=== PATIENT | female | born 1975 | race Two or more races ===

== ENCOUNTER 2016-03-30 17:59 | Emergency (ER) | payer OTHER ==
[2016-03-30 19:18] VITALS: BP 126/80
[2016-03-30] MEDS ORDERED: predniSONE TAB* 20 MG PO ONE (19:31)
[2016-03-30] MEDS ORDERED: Albuterol HFA INHALER* 8 gm MDI INH ONE (19:31)
--- NOTE | 2016-03-30 19:32 | UC ---
Respiratory Complaint HPI - HPI Summary HPI Summary: 40 yo asthmatic with URI symptoms for a while Now with severe sinus pressure and pain with dental tenderness now with fever and bronchospasm out of MDI - History of Current Complaint Chief Complaint: UCRespiratory Stated Complaint: SINUS ISSUE DENTAL PAIN Time Seen by Provider: 03/30/16 19:22 Hx Obtained From: Patient Hx Last Menstrual Period: 03/12/16 Onset/Duration: Sudden Onset, Lasting Weeks Timing: Constant Severity Initially: Mild Severity Currently: Severe Pain Intensity: 8 Pain Scale Used: 0-10 Numeric Character: Cough: Nonproductive Aggravating Factors: Nothing Alleviating Factors: Nothing Associated Signs And Symptoms: Positive: Fever, Chills, Wheezing, Nasal Congestion, Sinus Discomfort - Allergies/Home Medications Allergies/Adverse Reactions: Allergies Allergy/AdvReac Type Severity Reaction Status Date / Time Ciprofloxacin Allergy Swelling Verified 11/29/15 16:13 Iodine Allergy Anaphylatic Verified 11/29/15 16:13 Shock CONTRAST DYE Allergy ANAPHYLAXIS Uncoded 11/29/15 16:13 SEASONAL ALLERGIES Allergy ASTHMA Uncoded 11/29/15 16:13 PMH/Surg Hx/FS Hx/Imm Hx Previously Healthy: Yes Endocrine History Of: Reports: Thyroid Disease Denies: Diabetes Cardiovascular History Of: Reports: Cardiac Disorders Denies: Hypertension, Pacemaker/ICD Respiratory History Of: Reports: Asthma Denies: COPD GI/ History Of: Reports: Gall Bladder Disease - polyp, Renal Disease - kidney infections Denies: Gastroesophageal Reflux, Ulcer Neurological History Of: Denies: CVA, Dementia, Seizures Psychological History Of: Reports: Depression - ON MEDICATION Other History Of: Negative For: Anticoagulant Therapy - Surgical History Surgical History: Yes Surgery Procedure, Year, and Place: LUMP -BREAST SURGERY BILATERAL - Family History Known Family History: Positive: Cardiac Disease, Renal Disease, Respiratory Disease, Other - liver disease - Social History Alcohol Use: None Substance Use Type: None Smoking Status (MU): Current Every Day Smoker Type: Cigarettes Amount Used/How Often: 2 CIG/DAY - Immunization History Most Recent Tetanus Shot: 2011 Review of Systems Constitutional: Fever, Chills, Fatigue Skin: Negative Eyes: Negative ENT: Nasal Discharge Respiratory: Cough, Other - wheezing Cardiovascular: Negative Gastrointestinal: Negative Genitourinary: Negative Motor: Negative Neurovascular: Negative Musculoskeletal: Negative Neurological: Negative Psychological: Negative All Other Systems Reviewed And Are Negative: Yes Physical Exam Triage Information Reviewed: Yes Appearance: Well-Appearing, No Pain Distress, Well-Nourished Vital Signs: Initial Vital Signs Temp 98.7 F 03/30/16 19:14 Pulse 73 03/30/16 19:14 Resp 20 03/30/16 19:14 BP 126/80 03/30/16 19:14 Pulse Ox 100 03/30/16 19:14 Vital Signs Reviewed: Yes Eyes: Positive: Conjunctiva Clear ENT: Positive: Hearing grossly normal, Pharynx normal, Nasal congestion, Nasal drainage, TMs normal, Other: - markedly tender max sinuses. Negative: Tonsillar exudate, Trismus, Muffled/hoarse voice Dental: Negative: Gross Decay/Caries @ Neck: Positive: Supple, Nontender, No Lymphadenopathy Respiratory: Positive: No respiratory distress, No accessory muscle use, Wheezing - with forced expiration Cardiovascular: Positive: RRR, No Murmur. Negative: Tachycardia, Bradycardia Musculoskeletal: Positive: ROM Intact, No Edema Neurological: Positive: Alert Psychological Exam: Normal Skin Exam: Normal UC Diagnostic Evaluation - Laboratory O2 Sat by Pulse Oximetry: 100 - normal/not hypoxic Respiratory Course/Dx - Differential Dx/Diagnosis Provider Diagnoses: acute sinusitis. bronchospasm Discharge - Discharge Plan Condition: Stable Disposition: HOME Prescriptions: Amoxicillin/Clavulanate TAB* [Augmentin TAB 875*] 875 mg PO BID #20 tab HYDROcodone/ACETAMIN 5-325 MG* [[place] 5-325 TAB*] 1 tab PO Q4H PRN #15 tab MDD 5 PRN Reason: Pain Prednisone [Deltasone] 40 mg PO DAILY #10 tab Patient Education Materials: Sinusitis (ED), Bronchospasm (ED) Referrals: Girma Catalan MD [Primary Care Provider] - 4 Days (if not better)
== END 2016-03-30 19:44 | disposition home or self-care (01) ==
LOC: UCEAST 17:59
DX: J01.90 Acute sinusitis, unspecified (principal); J98.01 Acute bronchospasm; Z88.1 Allergy status to other antibiotic agents; Z91.041 Radiographic dye allergy status; F17.210 Nicotine dependence, cigarettes, uncomplicated
CPT/HCPCS: 99213; A9270-GY; G0463; J7512

== ENCOUNTER 2016-04-24 19:32 | Emergency (ER) | payer OTHER ==
[2016-04-24 20:13] VITALS: BP 122/60
--- NOTE | 2016-04-24 20:42 | UC ---
Complaint Female HPI - HPI Summary HPI Summary: Patient has frequent UTI, here today with dysuria and abd pain. - History Of Current Complaint Chief Complaint: UC Stated Complaint: FREQ URINATION W PAIN Time Seen by Provider: 04/24/16 20:13 Hx Obtained From: Patient Hx Last Menstrual Period: 03/02/16 ?: No Onset/Duration: Sudden Onset, Lasting Days Timing: Constant Severity Initially: Moderate Severity Currently: Severe Pain Intensity: 10 Pain Scale Used: 0-10 Numeric Character: Burning Aggravating Factor(s): Urination Alleviating Factor(s): Position Associated Signs And Symptoms: Positive: Back Pain - Risk Factors Ectopic Risk Factor: Negative - Allergies/Home Medications Allergies/Adverse Reactions: Allergies Allergy/AdvReac Type Severity Reaction Status Date / Time Ciprofloxacin Allergy Swelling Verified 04/24/16 20:04 Iodine Allergy Anaphylatic Verified 04/24/16 20:04 Shock CONTRAST DYE Allergy ANAPHYLAXIS Uncoded 04/24/16 20:04 SEASONAL ALLERGIES Allergy ASTHMA Uncoded 04/24/16 20:04 PMH/Surg Hx/FS Hx/Imm Hx Previously Healthy: Yes Endocrine History Of: Reports: Thyroid Disease Denies: Diabetes Cardiovascular History Of: Reports: Cardiac Disorders Denies: Hypertension, Pacemaker/ICD Respiratory History Of: Reports: Asthma Denies: COPD GI/ History Of: Reports: Gall Bladder Disease - polyp, Renal Disease - kidney infections Denies: Gastroesophageal Reflux, Ulcer Neurological History Of: Denies: CVA, Dementia, Seizures Psychological History Of: Reports: Depression - ON MEDICATION Other History Of: Negative For: Anticoagulant Therapy - Surgical History Surgical History: Yes Surgery Procedure, Year, and Place: LUMP -BREAST SURGERY BILATERAL - Family History Known Family History: Positive: Cardiac Disease, Renal Disease, Respiratory Disease, Other - liver disease - Social History Alcohol Use: None Substance Use Type: None Smoking Status (MU): Light Every Day Tobacco Smoker Type: Cigarettes Amount Used/How Often: 2 CIG/DAY - Immunization History Most Recent Influenza Vaccination: none Most Recent Tetanus Shot: 2011 Review of Systems Constitutional: Negative Skin: Negative Eyes: Negative ENT: Negative Respiratory: Negative Cardiovascular: Negative Gastrointestinal: Abdominal Pain Genitourinary: Dysuria, Hematuria, Frequency, Urgency Motor: Negative Neurovascular: Negative Musculoskeletal: Negative Neurological: Negative Psychological: Negative All Other Systems Reviewed And Are Negative: Yes Physical Exam Triage Information Reviewed: Yes Appearance: Well-Appearing, Well-Nourished, Pain Distress Vital Signs: Initial Vital Signs Temp 98.2 F 04/24/16 20:07 Pulse 81 04/24/16 20:07 Resp 16 04/24/16 20:07 BP 122/60 04/24/16 20:07 Pulse Ox 100 04/24/16 20:07 Vital Signs Reviewed: Yes Eye Exam: Normal ENT Exam: Normal ENT: Positive: Normal ENT inspection, Hearing grossly normal, Pharynx normal, TMs normal Dental Exam: Normal Neck exam: Normal Neck: Positive: Supple, Nontender, No Lymphadenopathy Respiratory Exam: Normal Respiratory: Positive: Chest non-tender, Lungs clear, Normal breath sounds Cardiovascular Exam: Normal Cardiovascular: Positive: RRR, No Murmur, Pulses Normal - right CVA tenderness, lower abdominal tenderness Bowel Sounds: Positive: Present Musculoskeletal Exam: Normal Musculoskeletal: Positive: Strength Intact, ROM Intact, No Edema Neurological Exam: Normal Neurological: Positive: Alert, Muscle Tone Normal Psychological Exam: Normal Skin Exam: Normal Complaint Female Dx - Course Course Of Treatment: hx obtained, she cannot explain it well, but according to past visits she has urinary issues, exam performed, UA positive for leuks and nitrates, blood and PRO. spe grav 1.035, treated with keflex and pyridium - Differential Dx/Diagnosis Differential Diagnosis/HQI/PQRI: Pelvic Inflammatory Disease, Sexually Transmitted Disease, Ureteral Stone, Urinary Tract Infection Provider Diagnoses: UTI. dehyrdation Discharge - Discharge Plan Condition: Stable Disposition: HOME Patient Education Materials: Urinary Tract Infection in Women (ED) Additional Instructions: take the medication as prescribed. Increase your water intake. follow up if pain increases or you develop a fever.
[2016-04-24] MEDS ORDERED: Phenazopyridine TAB* 100 MG PO ONE (20:55)
[2016-04-24] MEDS ORDERED: Cephalexin CAP* 500 MG PO ONE (20:55)
== END 2016-04-24 21:03 | disposition home or self-care (01) ==
LOC: UCEAST 19:32
DX: N39.0 Urinary tract infection, site not specified (principal); R31.9 Hematuria, unspecified; Z87.440 Personal history of urinary (tract) infections; E86.0 Dehydration; Z88.1 Allergy status to other antibiotic agents; Z91.041 Radiographic dye allergy status; F17.210 Nicotine dependence, cigarettes, uncomplicated
CPT/HCPCS: 81002; 87077; 87086; 87186; 99212; A9270-GY; G0463

== ENCOUNTER 2016-11-13 17:44 | Emergency (ER) | payer OTHER ==
[2016-11-13] MEDS ORDERED: predniSONE TAB* 20 MG PO ONE (22:57)
[2016-11-13] MEDS ORDERED: Ibuprofen TAB* 800 MG PO ONE (22:57)
[2016-11-13] MEDS ORDERED: HYDROcodone/ACETAMIN 5-325 MG* 1 TAB PO ONE (22:58)
[2016-11-13] MEDS ORDERED: Cyclobenzaprine TAB* 10 MG PO ONE (22:58)
--- NOTE | 2016-11-13 23:06 | ED ---
Back Pain - HPI Summary HPI Summary: 40 female presents to ED with complaints of acute on chronic back pain that has been worsening over the past day. Patient states the pain has been excruciating. She has not taken any medications as she has been all out. She is supposed to have follow up with neurosurgery and further evaluation however patient has been unable due to having sick children. Worked a festival all weekend and feels as though that worsened her back pain as she was standing for long periods of time. States she has sciatica and osteoporosis. Sees pain clinic but has been unable to get over there and does not like the injections. She understands she should be following up with neurosurgeon. Denies new numbness/tingling and weakness. Does admit to some chronic numbness/tingling of upper right thigh and weakness that is her baseline. Patient denies any new injuries or trauma. Admits to pain radiating up her spine. Is able to walk and bear weight however it does make the pain worse. Laying makes the pain better. No other complaints at this time. Denies saddle anesthesia, bladder/bowel incontinence and weakness bilaterally. No erythema, eccyhmosis, or edema. No other significant PMHx. Patient states she does get UTIs often and feels she may have one. She also admits to sciatica and pain being more on the right side. No significant urinary symptoms other than frequency and dark urine. - History of Current Complaint Chief Complaint: EDBackInjuryPain Stated Complaint: BACK PAIN Hx Obtained From: Patient Hx Last Menstrual Period: 03/02/16 Onset/Duration: Sudden Onset Onset/Duration: Started Days Ago - 1, Traumatic, Still Present, Worse Since Timing: Constant Back Pain Location: Is Discrete @ - lumbar right side Severity Initially: Moderate Severity Currently: Severe Pain Intensity: 10 Pain Scale Used: 0-10 Numeric Character: Sharp, Aching, Throbbing, Stiffness Aggravating Symptom(s): Movement Alleviating Symptom(s): Rest Associated Signs And Symptoms: Positive: Weakness, Tingling - chronic, nothing new. Negative: Bladder Incontinence, Bowel Incontinence, Pain with Weight Bearing - Risk Factors AAA Risk Factors: Negative TAD Risk Factors: Negative Epidural Abscess Risk Factors: Negative - Allergies/Home Medications Allergies/Adverse Reactions: Allergies Allergy/AdvReac Type Severity Reaction Status Date / Time Ciprofloxacin Allergy Swelling Verified 04/24/16 20:04 Iodine Allergy Anaphylatic Verified 04/24/16 20:04 Shock CONTRAST DYE Allergy ANAPHYLAXIS Uncoded 04/24/16 20:04 SEASONAL ALLERGIES Allergy ASTHMA Uncoded 04/24/16 20:04 PMH/Surg Hx/FS Hx/Imm Hx Endocrine/Hematology History: Reports: Hx Thyroid Disease, Hx Anemia Denies: Hx Anticoagulant Therapy, Hx Diabetes Cardiovascular History: Denies: Hx Hypertension, Hx Pacemaker/ICD Respiratory History: Reports: Hx Asthma Denies: Hx Chronic Obstructive Pulmonary Disease (COPD) GI History: Reports: Hx Gall Bladder Disease - polyp Denies: Hx Ulcer History: Reports: Hx Kidney Infection - LAST MONTH, Hx Renal Disease - kidney infections Musculoskeletal History: Reports: Hx Arthritis, Other Musculoskeletal History - CHRONIC BACK PAIN Sensory History: Denies: Hx Contacts or Glasses, Hx Hearing Aid Opthamlomology History: Denies: Hx Contacts or Glasses Neurological History: Denies: Hx Dementia, Hx Seizures Psychiatric History: Reports: Hx Depression - ON MEDICATION Denies: Hx Substance Abuse - Surgical History Surgery Procedure, Year, and Place: LUMP -BREAST SURGERY BILATERAL Hx Anesthesia Reactions: No - Immunization History Immunizations Up to Date: Yes Infectious Disease History: No Infectious Disease History: Denies: Hx Hepatitis, Hx Human Immunodeficiency Virus (HIV), History Other Infectious Disease, Traveled Outside the [place] in Last 30 Days - Family History Known Family History: Positive: Cardiac Disease, Renal Disease, Respiratory Disease, Other - liver disease - Social History Alcohol Use: Rare Substance Use Type: Reports: None Smoking Status (MU): Current Some Day Smoker Type: Cigarettes Amount Used/How Often: 2 CIG/DAY Review of Systems Constitutional: Negative Cardiovascular: Negative Respiratory: Negative Positive: frequency, other - dark urine Positive: Arthralgia, Myalgia, Decreased ROM - back Skin: Negative Positive: Paresthesia - chronic All Other Systems Reviewed And Are Negative: Yes Physical Exam Triage Information Reviewed: Yes Vital Signs On Initial Exam: Initial Vitals Temp Pulse Resp BP Pulse Ox 98.2 F 89 16 105/67 99 11/13/16 17:53 11/13/16 17:53 11/13/16 17:53 11/13/16 17:53 11/13/16 17:53 Vital Signs Reviewed: Yes Appearance: Positive: Well-Appearing, No Pain Distress, Well-Nourished Skin: Positive: Warm, Skin Color Reflects Adequate Perfusion, Dry. Negative: Cold, Tender, Cyanosis @, Pale, Erythema @ Head/Face: Positive: Normal Head/Face Inspection Eyes: Positive: EOMI, Conjunctiva Clear ENT: Positive: Normal ENT inspection, Hearing grossly normal, Pharynx normal Neck: Positive: Supple, Nontender Respiratory/Lung Sounds: Positive: Clear to Auscultation, Breath Sounds Present. Negative: Rales, Rhonchi, Wheezes Cardiovascular: Positive: Normal, Pulses are Symmetrical in both Upper and Lower Extremities. Negative: Murmur, Rub Abdomen Description: Positive: Nontender, No Organomegaly, Soft, CVA Tenderness (R). Negative: Bruit, CVA Tenderness (L), Distended, Guarding, Peritoneal Signs Bowel Sounds: Positive: Present Musculoskeletal: Positive: Normal, Limited @ - with flexion/extension of lower back. decreased strength of right LE, chronic per patient. rest of MSK exam normal, Pain @ - palpation of right side paraspinal back muscles/gluteal region , Other - no crepitus step off or obvious deformity noted. no ecchymosis, eryhema or edema. Negative: Edema Left Neurological: Positive: Normal, Sensory/Motor Intact, Alert, Oriented to Person Place, Time, CN Intact II-III, Reflexes Intact, NV Bundle Intact Distally, Abnormal Gait - limping due to pain but able Diagnostics - Vital Signs Vital Signs Temp Pulse Resp BP Pulse Ox 11/13/16 21:58 97.6 F 76 16 102/69 100 11/13/16 20:00 97.9 F 78 18 100/71 100 11/13/16 17:53 98.2 F 89 16 105/67 99 - Laboratory Lab Statement: Any lab studies that have been ordered have been reviewed, and results considered in the medical decision making process. Re-Evaluation - Re-Evaluation First Eval Re-Evaluation Time: 23:35 Change: Improved - had relief after medication Back Pain Course/Dx - Course Course Of Treatment: given pain management and had relief. patient denied new trauma or injury, therefore no imaging was obtained as it did not seem appropraite. also obtained urinalysis which showed severe UTI, will treat with antibiotics. Fluids, rest and follow up. Aware of emergent worsening signs and symptoms to watch out for and to return if occur. No concern for any other emergent etiology such as cauda equina or epidural abscess or AAA due to PE findings, vitals and HPI. ISTOP Reference #: [id number] - Diagnoses Differential Diagnosis/HQI/PQRI: Positive: Herniated Disc, Strain, Sprain Provider Diagnoses: Chronic low back pain with right-sided sciatica Discharge - Discharge Plan Condition: Stable Disposition: HOME Prescriptions: HYDROcodone/ACETAMIN 5-325 MG* [[place] 5-325 TAB*] 1 tab PO Q4H PRN #20 tab MDD 3 PRN Reason: Pain Ibuprofen TAB* [Motrin TAB* 600 MG] 600 mg PO Q6H PRN #30 tab PRN Reason: Pain Nitrofurantoin Monohyd Macro [Macrobid] 100 mg PO BID #14 cap predniSONE TAB* [Deltasone TAB*] 20 mg PO DAILY #4 tab Patient Education Materials: Chronic Back Pain (ED) Referrals: Juan Beckwith MD [Primary Care Provider] - Girma Painting MD [Medical Doctor] - Additional Instructions: Rest, apply heating pads throughout day and ice at night. Take medication as prescribed to help with pain and inflammation. Drink plenty of fluids. Take antibiotic as prescribed to help with UTI. Do not miss a dose, take entire dose even if symptoms improve. Follow up with neurosurgery and primary care provider. IF symptoms worsen or new symptoms develop such as bilateral weakness, numbness/ tingling (increasing), increasing pain, abdominal pain, chest pain, fever or bladder/bowel incontinence please seek medical attention immediately.
[2016-11-13 23:28] LABS: Urine Bacteria 3+ (Absent); Urine Bilirubin Negative (Negative); Urine Glucose Negative (Negative); Urine Nitrite Positive (Negative)
[2016-11-14] MEDS ORDERED: Nitrofurantoin Macrocrystals* 100 MG CAP PO ONE (00:09)
[2016-11-14 00:30] VITALS: BP 113/69
--- NOTE | 2016-11-16 19:56 | PN ---
Progress Note - Progress Note Date of Service: 11/16/16 Note: Patient urine grew E coli >100,000. Patient placed on macrobid which final culture show is sensitive to. no further action needed.
== END 2016-11-14 00:54 | disposition home or self-care (01) ==
LOC: ED 17:44
DX: M54.9 Dorsalgia, unspecified (principal); M54.31 Sciatica, right side; R53.1 Weakness; Z72.0 Tobacco use; M54.5 Low back pain
CPT/HCPCS: 81003; 81015; 87077; 87086; 87186; 99282; A9270-GY; J7512

== ENCOUNTER 2017-03-18 10:41 | Emergency (ER) | payer OTHER ==
[2017-03-18 10:50] VITALS: BP 106/62
--- NOTE | 2017-03-18 13:12 | UC ---
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 Tried taking " sinus medicine" without relief, took one dose of cetirizine without relief. Friend gave her a homemade remedy (from [place]), then her eyes turned red and itchy. - History of Current Complaint Chief Complaint: UCRespiratory Stated Complaint: CONGESTION/ SINUS PAIN Time Seen by Provider: 03/18/17 12:47 Hx Obtained From: Patient Hx Last Menstrual Period: 02/24/17 ?: No Onset/Duration: Gradual Onset, Lasting Days Severity: Mild Cough: None Associated Signs & Symptoms: Positive: Wheezing, Nasal Discharge - Allergies/Home Medications Allergies/Adverse Reactions: Allergies Allergy/AdvReac Type Severity Reaction Status Date / Time Ciprofloxacin Allergy Swelling Verified 03/18/17 10:45 Iodine Allergy Anaphylatic Verified 03/18/17 10:45 Shock CONTRAST DYE Allergy ANAPHYLAXIS Uncoded 03/18/17 10:45 SEASONAL ALLERGIES Allergy ASTHMA Uncoded 03/18/17 10:45 PMH/Surg Hx/FS Hx/Imm Hx Previously Healthy: Yes Respiratory History: Asthma Other History Of: Negative For: Anticoagulant Therapy - Surgical History Surgical History: Yes Surgery Procedure, Year, and Place: LUMP -BREAST SURGERY BILATERAL - Family History Known Family History: Positive: Cardiac Disease, Renal Disease, Respiratory Disease, Other - liver disease - Social History Occupation: Employed Full-time Lives: With Family Alcohol Use: Rare Substance Use Type: None Smoking Status (MU): Former Smoker Type: Cigarettes Amount Used/How Often: 2 CIG/DAY - Immunization History Most Recent Influenza Vaccination: none Most Recent Tetanus Shot: 2011 Review of Systems Constitutional: Negative Skin: Negative Eyes: Eye Redness ENT: Nasal Discharge, Sinus Congestion Respiratory: Cough Cardiovascular: Negative Gastrointestinal: Negative Genitourinary: Negative Motor: Negative Neurovascular: Negative Musculoskeletal: Negative Neurological: Negative Psychological: Negative Is Patient Immunocompromised?: No All Other Systems Reviewed And Are Negative: Yes Physical Exam Triage Information Reviewed: Yes Appearance: Well-Appearing, No Pain Distress, Well-Nourished Vital Signs: Initial Vital Signs Temp 99.5 F 03/18/17 10:46 Pulse 92 03/18/17 10:46 Resp 16 03/18/17 10:46 BP 106/62 03/18/17 10:46 Pulse Ox 99 03/18/17 10:46 Vital Signs Reviewed: Yes Eyes: Positive: Conjunctiva Inflamed - bilat, symmetric. Negative: Discharge ENT: Positive: Hearing grossly normal, Nasal congestion, TMs normal. Negative: Hoarse voice, Dental tenderness Dental Exam: Normal Neck exam: Normal Neck: Positive: Supple, Nontender, No Lymphadenopathy Respiratory: Positive: No respiratory distress, Wheezing - slight at bases Cardiovascular Exam: Normal Cardiovascular: Positive: RRR, No Murmur Musculoskeletal Exam: Normal Neurological Exam: Normal Psychological Exam: Normal Skin Exam: Normal Throat Pain/Nasal Course/Dx - Differential Dx/Diagnosis Provider Diagnoses: allergic rhinitis. allergic conjunctivitis Discharge - Discharge Plan Condition: Stable Disposition: HOME Prescriptions: Cetirizine* [ZyrTEC 10 MG TAB*] 10 mg PO DAILY #30 tab Mometasone Furoate (Nasal) [Nasonex] 2 spray BOTH NARES DAILY #1 bottle predniSONE TAB* [Deltasone TAB*] 20 mg PO BID #8 tab Patient Education Materials: Allergic Rhinitis (ED), Conjunctivitis (ED) Referrals: No Primary Care Phys,NOPCP [Primary Care Provider] - Additional Instructions: I believe your eyes are red from your heavy allergies; they should clear up in a few days with this medicine. Take cetirizine TWICE daily for 4 days, then drop down to once per day Take the prednisone twice daily for 4 days Use the nasal spray every day for at least 2 weeks; though I recommend you keep using it since you report a lot of allergies. See your doctor if you are not feeling better by the middle of this week.
== END 2017-03-18 13:11 | disposition home or self-care (01) ==
LOC: UCEAST 10:41
DX: J30.9 Allergic rhinitis, unspecified (principal); H10.13 Acute atopic conjunctivitis, bilateral; Z88.1 Allergy status to other antibiotic agents; Z88.3 Allergy status to other anti-infective agents; Z91.041 Radiographic dye allergy status; Z87.891 Personal history of nicotine dependence
CPT/HCPCS: 99212; G0463

== ENCOUNTER 2017-07-18 11:14 | Emergency (ER) | payer OTHER ==
[2017-07-18] MEDS ORDERED: Dexamethasone IV* 4 MG/ML 5 ML VIAL (20 MG) IVPB ONE (11:40)
[2017-07-18] MEDS ORDERED: Orphenadrine Citrate IV* 30 MG/ML 2 ML VIAL IV ONE (11:40)
[2017-07-18] MEDS ORDERED: Ketorolac INJ* 30 MG/ML 1 ML VIAL IV PUSH ONE (11:40)
--- NOTE | 2017-07-18 13:07 | RAD ---
INDICATION: Back pain COMPARISON: October 01, 2013 TECHNIQUE: AP and lateral views were obtained . FINDINGS: Bones: There are no acute bony findings. There are no significant osteoarthritic findings. Alignment: Normal Disc spaces: The disc spaces are well-maintained Soft tissues: There are no soft tissue abnormalities. IMPRESSION: NEGATIVE EXAMINATION
--- NOTE | 2017-07-18 13:29 | ED ---
Vic Gregg Julia, scribed for Caleb Brewster MD on 07/18/17 at 1132 . Back Pain - HPI Summary HPI Summary: This is a 41 year old F presenting to [facility] with a chief complaint of low back pain after pushing a heavy garbage can at work. 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 Pain is 7/10 in severity. She denies fecal or bowel dysfunction. She has a history of low back pain. - History of Current Complaint Chief Complaint: EDBackInjuryPain Stated Complaint: BACK PAIN Time Seen by Provider: 07/18/17 11:26 Hx Obtained From: Patient Hx Last Menstrual Period: 02/24/17 Onset/Duration: Sudden Onset, Lasting Hours Pain Intensity: 7 Pain Scale Used: 0-10 Numeric Aggravating Symptom(s): Walking, Other - coming down in elevator Associated Signs And Symptoms: Positive: Negative Related History: Previous Back Injury - Allergies/Home Medications Allergies/Adverse Reactions: Allergies Allergy/AdvReac Type Severity Reaction Status Date / Time MS Ciprofloxacin Allergy Mild Swelling Verified 07/18/17 11:58 [Ciprofloxacin] MS Iodine [Iodine] Allergy Mild Anaphylatic Verified 07/18/17 11:58 Shock CONTRAST DYE Allergy Mild ANAPHYLAXIS Uncoded 07/18/17 11:58 SEASONAL ALLERGIES Allergy Mild ASTHMA Uncoded 07/18/17 11:58 Home Medications: Home Medications Acetaminophen [Tylenol Arthritis] 650 mg PO Q8H PRN 07/18/17 [History Confirmed 07/18/17] Cetirizine* [ZyrTEC 10 MG TAB*] 10 mg PO DAILY PRN 07/18/17 [History Confirmed 07/18/17] PMH/Surg Hx/FS Hx/Imm Hx Endocrine/Hematology History: Reports: Hx Thyroid Disease, Hx Anemia Denies: Hx Anticoagulant Therapy, Hx Diabetes Cardiovascular History: Denies: Hx Hypertension, Hx Pacemaker/ICD Respiratory History: Reports: Hx Asthma Denies: Hx Chronic Obstructive Pulmonary Disease (COPD) GI History: Reports: Hx Gall Bladder Disease - polyp Denies: Hx Ulcer History: Reports: Hx Kidney Infection - LAST MONTH, Hx Renal Disease - kidney infections Musculoskeletal History: Reports: Hx Arthritis, Other Musculoskeletal History - CHRONIC BACK PAIN Sensory History: Denies: Hx Contacts or Glasses, Hx Hearing Aid Opthamlomology History: Denies: Hx Contacts or Glasses Neurological History: Denies: Hx Dementia, Hx Seizures Psychiatric History: Reports: Hx Depression - ON MEDICATION Denies: Hx Substance Abuse - Surgical History Surgery Procedure, Year, and Place: LUMP -BREAST SURGERY BILATERAL Hx Anesthesia Reactions: No Infectious Disease History: No Infectious Disease History: Denies: Hx Clostridium Difficile, Hx Hepatitis, Hx Human Immunodeficiency Virus (HIV), Hx Shingles, Hx Tuberculosis, Hx Known/Suspected VRE, Hx Known/ Suspected VRSA, History Other Infectious Disease, Traveled Outside the [place] in Last 30 Days - Family History Known Family History: Positive: Cardiac Disease, Renal Disease, Respiratory Disease, Other - liver disease - Social History Occupation: Employed Full-time Alcohol Use: Rare Substance Use Type: Reports: None Smoking Status (MU): Light Every Day Tobacco Smoker Type: Cigarettes Amount Used/How Often: 2 CIG/DAY Review of Systems Gastrointestinal: Negative Positive: Myalgia - low back pain All Other Systems Reviewed And Are Negative: Yes Physical Exam - Summary Physical Exam Summary: VITAL SIGNS: Reviewed. GENERAL: Patient is a well-developed and nourished female who is lying comfortable in the stretcher. Patient is not in any acute respiratory distress. HEAD AND FACE: No signs of trauma. No ecchymosis, hematomas or skull depressions. No sinus tenderness. EYES: PERRLA, EOMI x 2, No injected conjunctiva, no nystagmus. EARS: Hearing grossly intact. Ear canals and tympanic membranes are within normal limits. MOUTH: Oropharynx within normal limits. NECK: Supple, trachea is midline, no adenopathy, no JVD, no carotid bruit, no c- spine tenderness, neck with full ROM. CHEST: Symmetric, no tenderness at palpation LUNGS: Clear to auscultation bilaterally. No wheezing or crackles. CVS: Regular rate and rhythm, S1 and S2 present, no murmurs or gallops appreciated. ABDOMEN: Soft, non-tender. No signs of distention. No rebound no guarding, and no masses palpated. Bowel sounds are normal. EXTREMITIES: FROM in all major joints, no edema, no cyanosis or clubbing. Paraspinal muscle tenderness NEURO: Alert and oriented x 3. No acute neurological deficits. Speech is normal and follows commands. SKIN: Dry and warm Triage Information Reviewed: Yes Vital Signs On Initial Exam: Initial Vitals Temp Pulse Resp BP Pulse Ox 97.9 F 86 16 127/65 99 07/18/17 11:22 07/18/17 11:22 07/18/17 11:22 07/18/17 11:22 07/18/17 11:22 Vital Signs Reviewed: Yes Diagnostics - Vital Signs Vital Signs Temp Pulse Resp BP Pulse Ox 07/18/17 11:22 97.9 F 86 16 127/65 99 - Laboratory Lab Statement: Any lab studies that have been ordered have been reviewed, and results considered in the medical decision making process. - Radiology Lumbar Spine XR Radiology Interpretation Completed By: Radiologist - NEGATIVE EXAMINATION. Dr. Brewster has reviewed this report. Re-Evaluation - Re-Evaluation 1 Re-Evaluation Time: 13:18 Comment: Pt is informed of results. Back Pain Course/Dx - Course Assessment/Plan: This patient is a 41-year-old female who presents to the emergency room via ambulance with a chief complaint of lower back pain. She reports that today she was trying to push and garbage can of the work and she developed lower back pain. She denies any fecal or urinary dysfunction. X-ray of the lumbar spine impression: Negative for an acute fracture or dislocation. In the ER course the patient was given Decadron, Norflex, and Toradol for the pain. She reports that the pain has improved and she is able to ambulate. Therefore I believe the patient has a lumbar strain and a muscle spasm. Therefore, she will be discharged home with follow-up with primary care physician. She was recommended to return to the emergency room she develops any upper or lower extremity weakness, difficulty ambulation, or bowel or urinary dysfunction. The patient understands and agrees. She will be given a prescription for Medrol Dosepak, Robaxin, and ibuprofen and [place]. I discussed all the findings and test results with the patient. Patient was instructed to return to the emergency room immediately if any of the symptoms return or worsens. Plan of care was discussed with the patient and understands and agrees. All questions were answered at patient satisfaction. There were no further complaints or concerns. Lung exam before discharge: CTA B/L. Good air exchange. No wheezing or crackles heard. CVS: S1 and S2 present. No murmurs appreciated. Patient is alert and oriented x 3. Patient is hemodynamically stable. Patient will be discharged home with follow up PCP in the next 2-3 days - Diagnoses Differential Diagnosis/HQI/PQRI: Positive: Arthritis, Herniated Disc, Strain, Sprain Provider Diagnoses: Low back strain Discharge - Sign-Out/Discharge Documenting (check all that apply): Discharge/Admit/Transfer - Discharge Plan Condition: Stable Disposition: HOME Prescriptions: HYDROcodone/ACETAMIN 5-325 MG* [Madison 5-325 TAB*] 1 tab PO Q4H PRN #10 tab MDD 4 PRN Reason: Pain Ibuprofen TAB* [Motrin TAB* 600 MG] 600 mg PO Q8H PRN #20 tab PRN Reason: Pain Methocarbamol TAB* [Robaxin 500 MG TAB*] 500 mg PO TID PRN #9 tab PRN Reason: Pain methylPREDNISolone [Medrol Dosepak 4 MG*] 0 mg PO .SEE SHERI INSTRUCTION #1 sheri Patient Education Materials: Low Back Strain (ED) Forms: *Work Release Referrals: No Primary Care Phys,NOPCP [Medical Doctor] - [facility] [place] [facility] [Outside] - If Needed Additional Instructions: RETURN TO THE ED FOR WORSENING SYMPTOMS. - Billing Disposition and Condition Condition: STABLE Disposition: HOME The documentation as recorded by the Vic karimi Julia accurately reflects the service I personally performed and the decisions made by Ney helms Walter, MD.
[2017-07-18 13:54] VITALS: BP 122/72
== END 2017-07-18 13:53 | disposition home or self-care (01) ==
LOC: ED 11:14
DX: S39.012A Strain of muscle, fascia and tendon of lower back, initial encounter (principal); X50.9XXA Other and unspecified overexertion or strenuous movements or postures, initial encounter; Y92.9 Unspecified place or not applicable; Z88.8 Allergy status to other drugs, medicaments and biological substances; Z88.3 Allergy status to other anti-infective agents; Z91.041 Radiographic dye allergy status
CPT/HCPCS: 72100; 96374; 96375; 99283; J1100; J1885; J2360

== ENCOUNTER 2018-01-28 18:26 | Emergency (ER) | payer OTHER ==
--- OUTSIDE RECORDS SUMMARY | 2018-01-28 18:57 | XMS REPORT | Continuity of Care Document ---
:1975 External Reference #:[id number] Author Name Elaina Villareal Care Team Providers Name Role Phone Juan Beckwith MD Primary Care Physician Unavailable Payers Type Date Identification Numbers Payment Provider Subscriber Effective: 2009 Policy Number: [id number] [employer] Medicaid Group Name: [id number] [address] [id number] PayID: [id number] [place] [address] Advance Directives Description No Information Available Problems Date Description Provider Status Onset: 03/03/2016 Diverticulitis of colon Juan Beckwith M.D. Active Onset: 03/03/2016 Diarrhea Juan Beckwith M.D. Active Onset: 03/03/2016 Diverticular disease of colon Juan Beckwith M.D. Active Onset: 03/03/2016 Low back pain Juan Beckwith M.D. Active Onset: 03/03/2016 Gastroesophageal reflux disease Juan Beckwith M.D. Active Onset: 03/24/2016 Hematuria syndrome Juan Beckwith M.D. Active Onset: 05/22/2016 Mild recurrent major depression Juan Beckwith M.D. Active Onset: 12/22/2016 Varicose veins of lower extremity Juan Beckwith M.D. Active Onset: 09/06/2017 Insomnia Juan Beckwith M.D. Active Family History Date Family Member(s) Problem(s) Comments General Heart Disease Social History Type Date Description Comments Sex Unknown Marital Status Single Lives With Children Occupation Unemployed Tobacco Use Start: Unknown Currently smokes 1-5 Cigarettes Daily ETOH Use Denies alcohol use Recreational Drug Use Never Used Drugs Tobacco Use Start: Unknown Patient is a current smoker, smokes some days Smoking Status Reviewed: 01/14/18 Patient is a current smoker, smokes some days Exercise Type/Frequency Exercises regularly Allergies, Adverse Reactions, Alerts Date Description Reaction Status Severity Comments 01/04/2010 Iodine (IV) Asthma attack Active 01/04/2010 Cipro vomitting and mouth swelled Active Medications Medication Date Status Form Strength Qnty SIG Indications Ordering Provider Trazodone HCL 09/12/ Active Tablets 50mg 30tabs take 1 Juan 2018 tab by Amena romo at , M.D. bedtime Loratadine 12/07/ Active Tablets 10mg 30tabs 1 by J30.9 Juan 2016 mouth Matiika every day , M.DBc as needed Tylenol With 03/03/ Active Tablets 300-30mg 20tabs 1 tab by Juan Codeine #3 2017 mouth Pachikara every 4 , M.D. to 6 hours as needed Zolpidem Tartrate 09/06/ Hx Tablets 10mg 14tabs 1/2 to 1 G47.00 Juan 2017 - tab by Amena 09/12/ mouth , MBcDBc 2018 every night at bedtime as needed Nitrofurantoin 07/22/ Hx Capsules 100mg 14caps Take 1 Zsofia Monohydrate/Macro 2017 - tab po Doug, crystals 11/28/ bid for 7 [facility] 2016 days. Follow up with in 7 days. Phenazopyridine 07/19/ Hx Tablets 100mg 4tabs take 1 N39.0 Zsofia HCL 2017 - tab 2x Doug, 11/28/ daily for [employer] 2016 2 days after meals No Active 03/03/ Hx Unknown Medications 2016 - 2016 Omeprazole 03/03/ Hx Capsules 40mg 30caps 1 by K21.9 Juan 2016 - mouth in Amena 04/11/ in the MBcDBc 2017 morning 1 hour before eating Ibuprofen 01/04/ Hx Tablets 600mg 90tabs tid 724.2 Juan 2009 - Amena 03/03/ Mario 2016 Allergy Relief / Hx Tablets 10mg Juan - Amena 12/07/ Mario 2016 Medications Administered in Office Medication Date Status Form Strength Qnty SIG Indications Ordering Provider PPD Administered Injection Viktoriya Ash NP Immunizations Description No Information Available Vital Signs Date Vital Result Comment 01/14/2018 9:50am Height 64 inches 5'4" Weight 166.38 lb Heart Rate 82 /min BP Systolic Sitting 112 mmHg Lue regular cuff BP Diastolic Sitting 76 mmHg Lue regular cuff Respiratory Rate 16 /min O2 % BldC Oximetry 98 % BMI (Body Mass Index) 28.6 kg/m2 11/21/2017 9:18am Height 64 inches 5'4" Weight 163.25 lb Heart Rate 78 /min BP Systolic Sitting 110 mmHg Lue regular cuff BP Diastolic Sitting 68 mmHg Lue regular cuff Respiratory Rate 16 /min O2 % BldC Oximetry 98 % BMI (Body Mass Index) 28.0 kg/m2 Neck Circumference in inches 14 09/06/2017 11:21am Height 64 inches 5'4" Weight 164.00 lb Heart Rate 88 /min BP Systolic Sitting 102 mmHg BP Diastolic Sitting 64 mmHg Body Temperature 97.9 F Pain Level 10 back O2 % BldC Oximetry 99 % BMI (Body Mass Index) 28.1 kg/m2 04/11/2017 10:29am Weight 163.00 lb Heart Rate 102 /min BP Systolic Sitting 102 mmHg BP Diastolic Sitting 68 mmHg Body Temperature 97.6 F O2 % BldC Oximetry 98 % 12/22/2016 11:38am Height 64 inches 5'4" Weight 158.00 lb Heart Rate 79 /min BP Systolic 108 mmHg BP Diastolic 66 mmHg Body Temperature 98.1 F O2 % BldC Oximetry 98 % BMI (Body Mass Index) 27.1 kg/m2 12/18/2016 12:45pm Height 64 inches 5'4" Weight 156.00 lb Heart Rate 82 /min BP Systolic Sitting 122 mmHg BP Diastolic Sitting 70 mmHg Pain Level 8 BMI (Body Mass Index) 26.8 kg/m2 12/07/2016 12:48pm Height 64 inches 5'4" Weight 160.00 lb Heart Rate 87 /min BP Systolic 116 mmHg BP Diastolic 68 mmHg Body Temperature 98.0 F O2 % BldC Oximetry 97 % BMI (Body Mass Index) 27.5 kg/m2 11/28/2016 11:34am Weight 156.00 lb Heart Rate 91 /min BP Systolic Sitting 100 mmHg BP Diastolic Sitting 64 mmHg Body Temperature 98.1 F Pain Level 9 in chest from coughing O2 % BldC Oximetry 98 % 07/19/2016 2:02pm Weight 154.12 lb Heart Rate 98 /min BP Systolic Sitting 110 mmHg BP Diastolic Sitting 66 mmHg Body Temperature 98.3 F O2 % BldC Oximetry 98 % 05/22/2016 2:14pm Weight 149.50 lb Heart Rate 98 /min BP Systolic Sitting 102 mmHg BP Diastolic Sitting 66 mmHg Body Temperature 98.4 F O2 % BldC Oximetry 98 % 03/24/2016 1:24pm Weight 149.00 lb Heart Rate 62 /min BP Systolic Sitting 90 mmHg BP Diastolic Sitting 66 mmHg Body Temperature 97.9 F O2 % BldC Oximetry 98 % 03/03/2016 10:29am Weight 149.25 lb Heart Rate 70 /min BP Systolic Sitting 98 mmHg BP Diastolic Sitting 56 mmHg Body Temperature 97.6 F O2 % BldC Oximetry 98 % 04/25/2010 8:46am Weight 141.00 lb Heart Rate 88 /min BP Systolic Sitting 98 mmHg BP Diastolic Sitting 64 mmHg 02/23/2010 8:36am Weight 142.00 lb Heart Rate 80 /min BP Systolic Sitting 100 mmHg BP Diastolic Sitting 64 mmHg 01/04/2010 11:32am Weight 139.00 lb BP Systolic 92 mmHg BP Diastolic 64 mmHg Results Test Date Facility Test Result H/L Range Note Laboratory test 11/28/2016 [employer] [facility] A negative finding Strep Urine Culture And 11/13/2016 [facility] Urine Culture SEE RESULT [address] [place] [address] [phone] Urine Culture And 07/19/2016 [facility] Urine Culture SEE RESULT [address] [place] [address] [phone] Ua Routine 07/19/2016 [facility] Ua Specific 1.025 [place] Ua PH 5 Ua Color dark yellow Ua Appera cloudy Ua WBC ++ Ua Protein trace Ua Glucose normal Ua Ketones neg Ua Bilirubin neg Ua Urobilinogen normal Ua Nitrite POS Ua Occult Blood lrg Urine Culture And 04/24/2016 [facility] Urine Culture SEE RESULT 3, [address] [place] [address] [phone] Lipid Profile 03/03/2016 [facility] Triglycerides 130 mg/dL N 5 (Trig/Chol/HDL) [address] [place] [address] [phone] Cholesterol 183 mg/dL N 6 HDL Cholesterol 52.3 mg/dL N 7 LDL Cholesterol 105 mg/dL N 8 Laboratory test 03/03/2016 [facility] TSH (Thyroid 0.94 mcIU/mL N 0.34-5.[address] Stim [place]orm) [place] [address] [phone] Comp Metabolic 03/03/2016 [facility] Sodium 136 mmol/L N 133- [address] [place] [address] [phone] Potassium 4.4 mmol/L N 3.5-5.0 Chloride 104 mmol/L N 101-111 Co2 Carbon Dioxide 27 mmol/L N 22-32 Anion Gap 5 mmol/L N 2-11 Glucose 78 mg/dL N 70-100 Blood Urea Nitrogen 14 mg/dL N 6-24 Creatinine 0.74 mg/dL N 0.51-0.95 BUN/Creatinine Ratio 18.9 N 8-20 Calcium 9.2 mg/dL N 8.6-10.3 Total Protein 6.9 g/dL N 6.4-8.9 Albumin 4.2 g/dL N 3.2-5.2 Globulin 2.7 g/dL N 2-4 Albumin/Globulin Ratio 1.6 N 1-3 Total Bilirubin 0.60 mg/dL N 0.2-1.0 Alkaline Phosphatase 63 U/L N 34-104 Alt 15 U/L N 7-52 Ast 16 U/L N 13-39 Egfr Non- 86.5 N >60 Egfr 111.2 N >60 9 Urinalysis Profile 03/03/2016 [facility] Urine Color Yellow [address] [place] [address] [phone] Urine Appearance Clear N Urine Specific [place] 1.024 N 1.010-1.030 Urine pH 5.0 N 5-9 Urine Urobilinogen Negative N Negative Urine Ketones Negative N Negative Urine Protein Negative N Negative Urine Leukocytes Negative N Negative Urine Blood 2+ Abnormal Negative Urine Nitrite Negative N Negative Urine Bilirubin Negative N Negative Urine Glucose Negative N Negative Urine White Blood Cell Absent N Absent Urine Red Blood Cell 2+(6-10/hpf) Abnormal Absent Urine Bacteria Absent N Absent Urine Squamous Epithelial Cell Present Abnormal Absent Urine Hyaline Casts Present Abnormal Absent CBC Auto Diff 03/03/2016 [facility] White Blood 6.6 10^3/uL N 3.5-10.[address] [place] [address] [phone] Red Blood Count 4.66 10^6/uL N 4.0-5.4 Hemoglobin 12.4 g/dL N 12.0-16.0 Hematocrit 38 % N 35-47 Mean Corpuscular Volume 82 fL N 80-97 Mean Corpuscular Hemoglobin 27 pg N 27-31 Mean Corpuscular HGB Conc 32 g/dL N 31-36 Red Cell Distribution Width 14 % N 10.5-15 Platelet Count 231 10^3/uL N 150-450 Mean Platelet Volume 10 um3 N 7.4-10.4 Abs Neutrophils 4.0 10^3/uL N 1.5-7.7 Abs Lymphocytes 1.7 10^3/uL N 1.0-4.8 Abs Monocytes 0.5 10^3/uL N 0-0.8 Abs Eosinophils 0.3 10^3/uL N 0-0.6 Abs Basophils 0.1 10^3/uL N 0-0.2 Abs Nucleated RBC 0 10^3/uL N Granulocyte % 60.8 % N 38-83 Lymphocyte % 25.8 % N 25-47 Monocyte % 7.8 % N 1-9 Eosinophil % 4.5 % N 0-6 Basophil % 1.1 % N 0-2 Nucleated Red Blood Cells % 0 N Laboratory test 01/04/2010 [facility] TSH 0.90 MIU/ML 0.34- 5.60 finding [address] [place] [address] [phone] Comp Metabolic 01/04/2010 [facility] Sodium 139 mmol/L 135- 145 Panel [address] [place] [address] [phone] Potassium 4.2 mmol/L 3.5-5.0 Chloride 104 mmol/L 101-111 Co2 (Carbon Dioxide) 25.0 mmol/L 22-32 Anion Gap 10.0 mmol/L 2-11 10 Glucose 74 mg/dL 70-100 11 BUN 10 mg/dL 6-24 Creatinine 0.80 mg/dL 0.50-1.40 One Over Creatinine 1.20 BUN/Creatinine Ratio 12.5 8-20 Calcium 9.5 mg/dL 8.1-9.9 Total Protein 7.4 GM/DL 6.2-8.1 Albumin 4.1 GM/DL 3.6-5.4 Globulin 3.3 GM/DL 2-4 Albumin/Globulin Ratio 1.2 1-3 Bilirubin Total 1.0 mg/dL 0.4-1.5 12 Alkaline Phosphatase 59 U/L 30-110 Alt (SGPT) 16 U/L 14-54 Ast (Sgot) 21 U/L 12-42 eGFR Non- 86.8 > 60 eGFR 105.0 > 60 13 1 SEE RESULT BELOW Name: SWEETIE FARFAN : [address]: Low Cook MD Acct: [id number] Unit: [id number] AGE: 40 Location: ED Re11/13/16 SEX: F Status: DEP ER SPEC: [id number] [place]: 11/13/[address]: Kari RIBEIRO REQ: [id number] RECD: 11/13/16 STATUS: AARON GABRIEL DR: Juan Cook MD _ SOURCE: URINE SPDESC: ORDERED: Urine Culture COMMENTS: ESBL E. COLI: Consistent with previous results. Procedure Result Reported Site Urine Culture Final 11/16/16- 0834 ML Organism 1 ESBL ESCHERICHIA COLI [place] Count >100,000 (Many) CFU/ML 1. ESBL ESCHERICHIA COLI M.I.C. RX --------- ------ Ampicillin >=32 R Cefazolin >=64 R Cefepime R Ceftriaxone R Ciprofloxacin >=4 R Gentamicin <=1 S Levofloxacin >=8 R Meropenem <=0.25 S Nitrofurantoin <=16 S Tetracycline <=1 S Pipercillin/Tazobactam <=4 S Trimethoprim/Sulfamethoxazole >=320 R Amoxicillin/Clavulanic Acid 4 S Aztreonam R Contact the Microbiology Department for any additional antibiotic reporting. * ML - MAIN LAB ([facility]) . END OF REPORT * ML=Testing performed at Main Lab DEPARTMENT OF PATHOLOGY, [address] [place] [address] Braden Cruz M.D. Director [facility] # [id number] 2 SEE RESULT BELOW Name: SWEETIE FARFAN : [address]: Lázaro Camacho NP Acct: [id number] Unit: [id number] AGE: 40 Location: [facility] Re07/19/16 SEX: F Status: REG REF SPEC: [id number] [place]: 07/19/16-[address]: Lázaro Camacho NP REQ: [id number] RECD: 07/19/16 STATUS: COMP _ SOURCE: URINE SPDESC: ORDERED: Urine Culture COMMENTS: [id number] Urine Source: Random Procedure Result Reported Site Urine Culture Final 07/22/16- 0943 ML Organism 1 ESBL ESCHERICHIA COLI [place] Count >100,000 (Many) CFU/ML Organism 2 NORMAL CLARK [place] Count >100,000 (Many) CFU/ML ESBL E. COLI: Consistent with previous results. This isolate is an Extended Spectrum Beta-Lactamase Service Desk Team Lead (ESBL) strain, and as such is considered resistant for all penicillins, cephalosporins and aztreonam. 1. ESBL ESCHERICHIA COLI M.I.C. RX --------- ------ Ampicillin >=32 R Cefazolin >=64 R Cefepime R Ceftriaxone R Ciprofloxacin >=4 R Gentamicin <=1 S Levofloxacin >=8 R Meropenem <=0.25 S Nitrofurantoin <=16 S Tetracycline <=1 S CONTINUED ON NEXT PAGE * ML=Testing performed at Main Lab DEPARTMENT OF PATHOLOGY, [address] [place] [address] Braden Cruz M.D. Director [facility] # [id number] Patient: SWEETIE FARFAN [id number] (Continued) Specimen: [id number] Collected: 07/19/16 Received: 07/19/16-1750 (Continued) Procedure Result Reported Site Urine Culture Final (continued) 07/22/16942 1. ESBL ESCHERICHIA COLI (continued) MatthewIBcCBc RX --------- ------ Pipercillin/Tazobactam <=4 S Trimethoprim/Sulfamethoxazole >=320 R Amoxicillin/Clavulanic Acid 4 S Aztreonam R Contact the Microbiology Department for any additional antibiotic reporting. * ML - MAIN LAB ([facility]) . END OF REPORT * ML=Testing performed at Main Lab DEPARTMENT OF PATHOLOGY, [address] [place] [address] Braden Cruz M.D. Director [facility] # [id number] 3 [id number] 4 SEE RESULT BELOW Name: SWEETIE FARFAN DOB: [address]: Daniel Resendiz MD Acct: [id number] Unit: [id number] AGE: 40 Location: [facility] Re04/24/16 SEX: F Status: DEP ER SPEC: [id number] [place]: 04/24/16-[address] [facility] [address]: Doretha Espitia NP REQ: [id number] RECD: 04/25/16 STATUS: AARON GABRIEL DR: [facility] Juan Beckwith MD _ SOURCE: URINE SPDESC: ORDERED: Urine Culture COMMENTS: [id number] Procedure Result Reported Site Urine Culture Final 04/27/16- 0908 ML Organism 1 ESBL ESCHERICHIA COLI [place] Count >100,000 (Many) CFU/ML 1. ESBL ESCHERICHIA COLI M.I.C. RX --------- ------ Ampicillin >=32 R Cefazolin >=64 R Cefepime R Ceftriaxone >=64 R Ciprofloxacin >=4 R Gentamicin <=1 S Levofloxacin >=8 R Meropenem <=0.25 S Nitrofurantoin <=16 S Tetracycline <=1 S Pipercillin/Tazobactam <=4 S Trimethoprim/Sulfamethoxazole >=320 R Amoxicillin/Clavulanic Acid <=2 S Aztreonam R Contact the Microbiology Department for any additional antibiotic reporting. * ML - MAIN LAB ([facility]) . END OF REPORT * ML=Testing performed at Main Lab DEPARTMENT OF PATHOLOGY, [address] [place] [address] Braden Cruz M.D. Director [facility] # [id number] 5 Desirable <150 Borderline high 150-199 High 200-499 Very High >500 6 Desirable <200 Borderline high 200-239 High >239 7 Low <40 Desirable: 40-60 High: >60 8 Desirable: <100 mg/dL Near Optimal: 100-129 mg/dL Borderline High: 130-159 mg/dL High: 160-189 mg/dL Very High: >189 mg/dL 9 Because ethnic data is not always readily available, this report includes an eGFR for both -Americans and non- Americans. The National Kidney Disease Education Program (NKDEP) does not endorse the use of the MDRD equation for patients that are not between the ages of 18 and 70, are , have extremes of body size, muscle mass, or nutritional status, or are non- or non-. According to the National Kidney Foundation, irrespective of diagnosis, the stage of the disease is based on the level of kidney function: Stage Description GFR(mL/min/1.73 m(2)) 1 Kidney damage with normal or decreased GFR 90 2 Kidney damage with mild decrease in GFR 60-89 3 Moderate decrease in GFR 30-59 4 Severe decrease in GFR 15-29 5 Kidney failure <15 (or dialysis) 10 Anion gap measurement may be of limited value in the presence of any alkalosis, especially in a combined acid base disorder. . 11 Note change in reference range as of 10/17/07. The change was based on recommendations from the [place] [employer]. 12 A metabolite of Naproxen, O-desmethylnaproxen, has been shown to interfere with the Jendrassik-[place]ced[place] method for measuring total bilirubin. Samples from patients who have taken Naproxen have shown spurious elevation in total bilirubin levels. 13 Because ethnic data is not always readily available, this report includes an eGFR for both -Americans and non- Americans. The National Kidney Disease Education Program (NKDEP) does not endorse the use of the MDRD equation for patients that are not between the ages of 18 and 70, are , have extremes of body size, muscle mass, or nutritional status, or are non- or non-. According to the National Kidney Foundation, irrespective of diagnosis, the stage of the disease is based on the level of kidney function: Stage Description GFR(mL/min/1.73 m(2)) 1 Kidney damage with normal or decreased GFR 90 2 Kidney damage with mild decrease in GFR 60-89 3 Moderate decrease in GFR 30-59 4 Severe decrease in GFR 15-29 5 Kidney failure <15 (or dialysis) Procedures Date Code Description Status 12/25/2017 29553 Polysomnography Sleep Staging 4+ Parameters Completed 12/19/2013 28399483 Colonoscopy Completed 01/17/2010 74384055 Mammogram Completed Encounters Type Date Location Provider Dx Diagnosis Office Visit 11/21/2017 Pulmonology And Sleep Myra Frazier MD R06.83 Snoring 9:30a [facility] R53.83 Other fatigue G47.00 Insomnia, unspecified Office Visit 09/06/2017 11:20a [facility] Internal Juan Beckwith M54.5 Low back Medicine - [place] M.DBc pain Rd G47.00 Insomnia, unspecified K21.9 Gastro-esophageal reflux disease without esophagitis Office Visit 04/11/2017 [facility] Internal Viktoriya K21.9 Gastro-esophageal 10:00a Jose Ash NP reflux disease without [place] [address] esophagitis R19.7 Diarrhea, unspecified Z11.1 Encounter for screening for respiratory tuberculosis K42.9 Umbilical hernia without obstruction or gangrene Office Visit 12/22/2016 11:20a [facility] Internal Juan Beckwith, R31.9 Hematuria, Medicine - M.D. unspecified [address] I83.811 Varicose veins of right lower extremity with pain Office Visit 12/19/2016 10:30a [facility] Dermatology Max Sierra, L82.1 Other seborrheic MD keratosis Office Visit 12/18/2016 1:30p Neurosurgery Halima Strong, M54.5 Low back pain [facility] PA-C Office Visit 12/07/2016 1:00p [facility] Internal Juan J06.9 Acute upper Medicine - [place] Pach[place]iara, respiratory Rd M.D. infection, unspecified K21.9 Gastro-esophageal reflux disease without esophagitis Z12.31 Encntr screen mammogram for malignant neoplasm of breast J30.9 Allergic rhinitis, unspecified L98.9 Disorder of the skin and subcutaneous tissue, unspecified Office Visit 11/28/2016 10:50a [facility] Internal Medicine - Lorin Cruz M.D. R05 Cough [place] J02.9 Acute pharyngitis, unspecified Office Visit 07/19/2016 2:00p [facility] Internal Lázaro Camacho, N39.0 Urinary tract Medicine - [place] [employer] infection, site Rd not specified R31.9 Hematuria, unspecified Office Visit 05/22/2016 2:00p [facility] Internal Juan Beckwith, Z00.00 Encntr for Medicine - M.D. general adult [address] medical exam w/o abnormal findings K21.9 Gastro-esophageal reflux disease without esophagitis R31.9 Hematuria, unspecified F17.210 Nicotine dependence, cigarettes, uncomplicated M54.5 Low back pain F33.0 Major depressive disorder, recurrent, mild Office Visit 03/24/2016 1:20p [facility] Internal Juan Beckwith, R31.9 Hematuria, Medicine - M.D. unspecified [address] R10.30 Lower abdominal pain, unspecified Z12.39 Encounter for oth screening for malignant neoplasm of breast Office Visit 03/03/2016 10:20a [facility] Internal Juan R10.30 Lower abdominal Medicine Jan Beckwith M.D. pain, unspecified [address] R19.7 Diarrhea, unspecified K57.30 Dvrtclos of lg int w/o perforation or abscess w/o bleeding M54.5 Low back pain K21.9 Gastro-esophageal reflux disease without esophagitis Z13.220 Encounter for screening for lipoid disorders Office Visit 04/25/2010 8:40a DO Not Use [employer] Juan Beckwith, 722.93 [facility] Lumbar Region Office Visit 02/23/2010 8:40a DO Not Use [employer] Juan Pachikara, 724.2 [facility] 01/04/2010 11:00a DO Not Use [employer] [place] Pachikara, 724.2 [facility] Laboratory Exam Ordered as Part Of Routine General Med Exam Plan of Treatment 01/14/2018 - Myra Frazier, MDR06.83 SnoringFollow up:PRNG47.00 Insomnia, qzrhckysqugZ09.09 Other obesity due to excess calories
[2018-01-28 21:44] LABS: EGFR Non-African American 64.2 (>60)
[2018-01-28 21:46] LABS: Hematocrit 38 % (35-47); Hemoglobin 12.3 g/dl (12.0-16.0); Mean Corpuscular HGB Conc 32 g/dl (31-36); Mean Corpuscular Hemoglobin 26 pg (27-31); Mean Corpuscular Volume 81 fL (80-97); Mean Platelet Volume 9.5 fL (7.4-10.4); Platelet Count 263 10^3/ul (150-450); Red Blood Count 4.75 10^6/ul (4.00-5.40); Red Cell Distribution Width 15 % (10.5-15); White Blood Count 9.3 10^3/ul (3.5-10.8)
[2018-01-28] MEDS ORDERED: Diazepam TAB(*) 5 MG PO ONE (21:50)
--- NOTE | 2018-01-28 21:54 | ED ---
Headache - HPI Summary HPI Summary: Patient complains of neck pain and headache 3 days. History of recurrent neck stiffness times years, usually not with headache. States significant increase in tension and stress over the past few weeks. Denies fever, cough, sore throat , CP, SOB, N/V/V abdominal pain, change in hearing, change in BM. Medical history is asthma, chronic back pain. - History Of Current Complaint Chief Complaint: EDHeadache Stated Complaint: NECK PAIN/HEADACHE Time Seen by Provider: 01/28/18 21:35 Hx Obtained From: Patient Hx Last Menstrual Period: 02/24/17 Onset/Duration: Gradual Onset Initially Headache Was: Moderate Currently Pain Is: Moderate Timing: Constant Character: Throbbing Location of Headache: Frontal Aggravating Factor: Nothing Allevating Factors: Nothing Associated Signs And Symptoms: Neck Stiffness - Allergies/Home Medications Allergies/Adverse Reactions: Allergies Allergy/AdvReac Type Severity Reaction Status Date / Time ciprofloxacin Allergy Swelling Verified 01/28/18 18:50 Iodinated Contrast- Oral and Allergy Anaphylatic Verified 01/28/18 18:50 IV Dye Shock PMH/Surg Hx/FS Hx/Imm Hx Endocrine/Hematology History: Reports: Hx Thyroid Disease, Hx Anemia Denies: Hx Anticoagulant Therapy, Hx Diabetes Cardiovascular History: Denies: Hx Cardiac Arrest, Hx Hypertension, Hx Pacemaker/ICD Respiratory History: Reports: Hx Asthma Denies: Hx Chronic Obstructive Pulmonary Disease (COPD) GI History: Reports: Hx Gall Bladder Disease - polyp Denies: Hx Ulcer History: Reports: Hx Kidney Infection - LAST MONTH, Hx Renal Disease - kidney infections Musculoskeletal History: Reports: Hx Arthritis, Other Musculoskeletal History - CHRONIC BACK PAIN Denies: Hx Scoliosis Sensory History: Denies: Hx Contacts or Glasses, Hx Hearing Aid Opthamlomology History: Denies: Hx Contacts or Glasses Neurological History: Denies: Hx Dementia, Hx Seizures, Other Neuro Impairments/Disorders Psychiatric History: Reports: Hx Depression - ON MEDICATION Denies: Hx Substance Abuse - Surgical History Surgery Procedure, Year, and Place: LUMP -BREAST SURGERY BILATERAL Hx Anesthesia Reactions: No Infectious Disease History: No Infectious Disease History: Denies: Hx Clostridium Difficile, Hx Hepatitis, Hx Human Immunodeficiency Virus (HIV), Hx Shingles, Hx Tuberculosis, Hx Known/Suspected VRE, Hx Known/ Suspected VRSA, History Other Infectious Disease, Traveled Outside the [place] in Last 30 Days - Family History Known Family History: Positive: Cardiac Disease, Renal Disease, Respiratory Disease, Other - liver disease - Social History Alcohol Use: Rare Substance Use Type: Reports: None Smoking Status (MU): Light Every Day Tobacco Smoker Type: Cigarettes Amount Used/How Often: 2 CIG/DAY Review of Systems Constitutional: Negative Eyes: Negative ENT: Negative Cardiovascular: Negative Respiratory: Negative Gastrointestinal: Negative Genitourinary: Negative Musculoskeletal: Other Skin: Negative Positive: Headache Psychological: Normal All Other Systems Reviewed And Are Negative: Yes Physical Exam - Summary Physical Exam Summary: Tenderness along the left sternocleidomastoid and left trapezius muscle. Triage Information Reviewed: Yes Vital Signs On Initial Exam: Initial Vitals Temp Pulse Resp BP Pulse Ox 98.8 F 107 16 131/75 100 01/28/18 18:45 01/28/18 18:45 01/28/18 18:45 01/28/18 18:45 01/28/18 18:45 Vital Signs Reviewed: Yes Appearance: Positive: Well-Appearing Skin: Positive: Warm Head/Face: Positive: Normal Head/Face Inspection Eyes: Positive: Normal ENT: Positive: Normal ENT inspection Neck: Positive: Other: Respiratory/Lung Sounds: Positive: Clear to Auscultation Cardiovascular: Positive: Normal Abdomen Description: Positive: Nontender Musculoskeletal: Positive: Normal Neurological: Positive: Normal Psychiatric: Positive: Normal AVPU Assessment: Alert - [place] Coma Scale Best Eye Response: 4 - Spontaneous Best Motor Response: 6 - Obeys Commands Best Verbal Response: 5 - Oriented Coma Scale Total: 15 Diagnostics - Vital Signs Vital Signs Temp Pulse Resp BP Pulse Ox 01/28/18 20:52 97.9 F 75 18 131/81 100 01/28/18 18:45 98.8 F 107 16 131/75 100 - Laboratory Lab Results: Lab Results 01/28/18 01/28/18 01/28/18 Range/Units 21:18 21:18 21:18 WBC 9.3 (3.5-10.8) 10^3/ul RBC 4.75 (4.00-5.40) 10^6/ul Hgb 12.3 (12.0-16.0) g/dl Hct 38 (35-47) % MCV 81 (80-97) fL MCH 26 L (27-31) pg MCHC 32 (31-36) g/dl RDW 15 (10.5-15) % Plt Count 263 (150-450) 10^3/ul MPV 9.5 (7.4-10.4) fL Sodium 136 (135-145) mmol/L Potassium 3.4 L (3.5-5.0) mmol/L Chloride 102 (101-111) mmol/L Carbon Dioxide 28 (22-32) mmol/L Anion Gap 6 (2-11) mmol/L BUN 15 (6-24) mg/dL Creatinine 0.95 (0.51-0.95) mg/dL Est GFR ( Amer) 77.7 (>60) Est GFR (Non-Af Amer) 64.2 (>60) BUN/Creatinine Ratio 15.8 (8-20) Glucose 94 (70-100) mg/dL Lactic Acid 0.7 (0.5-2.0) mmol/L Calcium 9.3 (8.6-10.3) mg/dL Total Bilirubin 0.30 (0.2-1.0) mg/dL AST 14 (13-39) U/L ALT 12 (7-52) U/L Alkaline Phosphatase 78 (34-104) U/L C-Reactive Protein 5.48 (<8.01) mg/L Total Protein 7.2 (6.4-8.9) g/dL Albumin 4.0 (3.2-5.2) g/dL Globulin 3.2 (2-4) g/dL Albumin/Globulin Ratio 1.3 (1-3) Result Diagrams: 01/28/18 21:18 01/28/18 21:18 Lab Statement: Any lab studies that have been ordered have been reviewed, and results considered in the medical decision making process. Headache Course/Dx - Course Course Of Treatment: Patient complains of neck pain and headache 3 days. History of recurrent neck stiffness times years, usually not with headache. States significant increase in tension and stress over the past few weeks. Denies fever, cough, sore throat, CP, SOB, N/V/V abdominal pain, change in hearing, change in BM. Medical history is asthma, chronic back pain. Physical exam:Tenderness along the left sternocleidomastoid and left trapezius muscle. Right-sided neck nontender and supple. Vital signs within normal limits and stable. Labs unremarkable. Patient's symptoms significantly improved with Valium. - Diagnoses Provider Diagnoses: Tension headache, Muscle spasm Discharge - Sign-Out/Discharge Documenting (check all that apply): Patient Departure - Discharge Plan Condition: Stable Disposition: HOME Prescriptions: Diazepam TAB(*) [Valium TAB(*)] 5 mg PO TID PRN 2 Days #6 tab MDD 3 tabs PRN Reason: Pain Patient Education Materials: Tension Headache (ED), Muscle Spasm (ED) Forms: *Gen. Provider Communication Referrals: Juan Beckwith MD [Primary Care Provider] - Additional Instructions: Follow-up with primary care. Return to the ED for any new or worsening symptoms - Billing Disposition and Condition Condition: STABLE Disposition: Home
[2018-01-28] MEDS ORDERED: Ketorolac TAB * 10 MG TAB PO PRN (22:47)
[2018-01-28] MEDS ORDERED: diPHENhydraMINE PO* 25 MG PO ONE (22:48)
[2018-01-28 23:18] VITALS: BP 140/91
== END 2018-01-28 23:30 | disposition home or self-care (01) ==
LOC: ED 18:26
DX: G44.209 Tension-type headache, unspecified, not intractable (principal); M62.838 Other muscle spasm; M54.9 Dorsalgia, unspecified; M54.2 Cervicalgia; R51 Headache; Z88.1 Allergy status to other antibiotic agents; F17.210 Nicotine dependence, cigarettes, uncomplicated; Z85.3 Personal history of malignant neoplasm of breast
CPT/HCPCS: 36415; 80053; 83605; 85027; 86140; 99282; A9270-GY

== ENCOUNTER 2018-07-04 13:54 | Emergency (ER) | payer MEDICAID ==
--- NOTE | 2018-07-04 14:12 | ED ---
Shortness of Breath - HPI Summary HPI Summary: A 42 y/o F presents to ED c/o nonproductive cough onset a few days ago and worsening today. It feels like she can't breathe. Associated sx: SOB, mild lightheadedness. She rates her pain as 3 out of 10. PMHx: asthma, allergies. She is a smoker. - History of Current Complaint Chief Complaint: EDShortnessOfBreath Time Seen by Provider: 07/04/18 14:04 Hx Obtained From: Patient Onset/Duration: Lasting Days, Still Present Timing: Constant Current Severity: Severe Dyspnea At: Rest - Allergy/Home Medications Allergies/Adverse Reactions: Allergies Allergy/AdvReac Type Severity Reaction Status Date / Time ciprofloxacin Allergy Swelling Verified 07/04/18 13:58 Iodinated Contrast- Oral and Allergy Anaphylatic Verified 07/04/18 13:58 IV Dye Shock Home Medications: Home Medications Acetaminop/Codeine 30 MG TAB* [Tylenol/Codeine 30 MG TAB*] 1 tab PO .Q4-6H PRN 07/04/18 [History Confirmed 07/04/18] Albuterol HFA INHALER* [Ventolin HFA Inhaler*] 2 puff INH Q4H PRN 07/04/18 [ History Confirmed 07/04/18] Amitriptyline TAB* [Elavil TAB*] 25 mg PO QPM 07/04/18 [History Confirmed ] Omeprazole CAP (NF) [Prilosec CAP* 20 MG] 20 mg PO DAILY 07/04/18 [History Confirmed 07/04/18] PMH/Surg Hx/FS Hx/Imm Hx Previously Healthy: No Endocrine/Hematology History: Reports: Hx Thyroid Disease, Hx Anemia Denies: Hx Anticoagulant Therapy, Hx Diabetes Cardiovascular History: Denies: Hx Cardiac Arrest, Hx Hypertension, Hx Pacemaker/ICD Respiratory History: Reports: Hx Asthma Denies: Hx Chronic Obstructive Pulmonary Disease (COPD) GI History: Reports: Hx Gall Bladder Disease - polyp Denies: Hx Ulcer History: Reports: Hx Kidney Infection - LAST MONTH, Hx Renal Disease - kidney infections Musculoskeletal History: Reports: Hx Arthritis, Other Musculoskeletal History - CHRONIC BACK PAIN Denies: Hx Scoliosis Sensory History: Denies: Hx Contacts or Glasses, Hx Hearing Aid Opthamlomology History: Denies: Hx Contacts or Glasses Neurological History: Denies: Hx Dementia, Hx Seizures, Other Neuro Impairments/Disorders Psychiatric History: Reports: Hx Depression - ON MEDICATION Denies: Hx Substance Abuse - Surgical History Surgery Procedure, Year, and Place: LUMP -BREAST SURGERY BILATERAL Hx Anesthesia Reactions: No Infectious Disease History: No Infectious Disease History: Denies: Hx Clostridium Difficile, Hx Hepatitis, Hx Human Immunodeficiency Virus (HIV), Hx Shingles, Hx Tuberculosis, Hx Known/Suspected VRE, Hx Known/ Suspected VRSA, History Other Infectious Disease, Traveled Outside the [place] in Last 30 Days - Family History Known Family History: Positive: Cardiac Disease, Renal Disease, Respiratory Disease, Other - liver disease - Social History Occupation: Unemployed Lives: With Family Alcohol Use: Rare Hx Substance Use: No Substance Use Type: Reports: None Hx Tobacco Use: Yes Smoking Status (MU): Light Every Day Tobacco Smoker Type: Cigarettes Amount Used/How Often: 2 CIG/DAY Review of Systems Positive: Shortness Of Breath, Cough Neurological: Other - pos: mild lightheadedness All Other Systems Reviewed And Are Negative: Yes Physical Exam - Summary Physical Exam Summary: Appearance: The patient is well-nourished in no acute distress and in no acute pain. Skin: The skin is warm and dry and skin color reflects adequate perfusion. HEENT: The head is normocephalic and atraumatic. The pupils are equal and reactive. The conjunctivae are clear and without drainage. Nares are patent and without drainage. Mouth reveals moist mucous membranes and the throat is without erythema and exudate. The external ears are intact. The ear canals are patent and without drainage. The tympanic membranes are intact. Neck: The neck is supple with full range of motion and non-tender. There are no carotid bruits. There is no neck vein distension. Respiratory: Chest is non-tender. Decreased breath sound, tachypnea. Cardiovascular: Heart is regular rate and tachycardic. There is no murmur or rub auscultated. There is no peripheral edema and pulses are symmetrical and equal. Abdomen: The abdomen is soft and non-tender. There are normal bowel sounds heard in all four quadrants and there is no organomegaly palpated. Musculoskeletal: There is no back tenderness noted. Extremities are non-tender with full range of motion. There is good capillary refill. There is no peripheral edema or calf tenderness elicited. Neurological: Patient is alert and oriented to person, place and time. The patient has symmetrical motor strength in all four extremities. Cranial nerves are grossly intact. Deep tendon reflexes are symmetrical and equal in all four extremities. Psychiatric: The patient has an appropriate affect and does not exhibit any anxiety or depression. Triage Information Reviewed: Yes Vital Signs On Initial Exam: Initial Vitals Temp Pulse Resp BP Pulse Ox 99.3 F 126 24 160/94 97 07/04/18 13:55 07/04/18 13:55 07/04/18 13:55 07/04/18 13:55 07/04/18 13:55 Vital Signs Reviewed: Yes Diagnostics - Vital Signs Vital Signs Temp Pulse Resp BP Pulse Ox 07/04/18 13:55 99.3 F 126 24 160/94 97 - Laboratory Result Diagrams: 07/04/18 14:29 07/04/18 14:29 Lab Statement: Any lab studies that have been ordered have been reviewed, and results considered in the medical decision making process. - Radiology CXR Radiology Interpretation Completed By: Radiologist Summary of Radiographic Findings: IMPRESSION: NO EVIDENCE FOR ACTIVE CARDIOPULMONARY DISEASE. ED provider has reviewed this report. - EKG 1426 Cardiac Rate: Tachycardia - 121 bpm EKG Rhythm: Sinus Tachycardia Re-Evaluation - Re-Evaluation 1 Re-Evaluation Time: 16:44 Change: Unchanged Comment: Patient is still having cough, and chest pain due to cough. Course/Dx - Course Course Of Treatment: Ms. Anderson presented with a cough and increased shortness of breath. She has a history of pretty bad asthma and comes in complaining of chest pain. She improved some with some nebs and she was given Solu-Medrol. She got the most improvement with some guaifenesin and codeine. This helped with her cough as well as the pain. She was nontoxic in appearance with stable vitals and her labs and chest x-ray were fine including a delayed troponin. - Diagnoses Provider Diagnoses: Asthma exacerbation, Chest pain Discharge - Sign-Out/Discharge Documenting (check all that apply): Patient Departure - D/C Patient Received Moderate/Deep Sedation with Procedure: No - Discharge Plan Condition: Stable Disposition: HOME Prescriptions: Codeine Phosphate/Guaifenesin [Guaiatussin AC Liquid] 5 ml PO Q4HR #120 ml MDD 30 cc Patient Education Materials: Narcotic-Antitussive/Expectorant (By mouth), Asthma (ED) Referrals: Yoli Bradford MD [Primary Care Provider] - 3 Days Additional Instructions: Please return to the ED if you experience new or worsening symptoms. Follow up with your primary care provider in 2-3 days. - Billing Disposition and Condition Condition: STABLE Disposition: Home - Attestation Statements Document Initiated by Scribe: Yes Documenting Scribe: Rossy Villaseñor Provider For Whom Ankitibamy is Documenting (Include Credential): Dr. Ferny Stock MD Scribe Attestation: Rossy Gregg, scribed for Dr. Ferny Stock MD on 07/06/18 at 0842. Scribe Documentation Reviewed: Yes Provider Attestation: The documentation as recorded by the Rossy karimi accurately reflects the service I personally performed and the decisions made by me, Dr. Ferny Stock MD Status of Scribe Document: Viewed
[2018-07-04] MEDS ORDERED: methylPREDNISolone 125 MG* 2 ML VIAL IV ONE (14:18)
[2018-07-04] MEDS ORDERED: Albuterol/Ipratropium NEB.SOL* Albuterol 2.5 MG/Ipratropium 0.5 MG 3 ML INH ONE ×2 (14:18→17:47)
[2018-07-04] MEDS ORDERED: Ketorolac INJ* 30 MG/ML 1 ML VIAL ONE (14:33)
[2018-07-04] MEDS ORDERED: Ketorolac INJ* 30 MG/ML 1 ML VIAL IV PUSH ONE (14:33)
[2018-07-04 14:37] LABS: ABS Eosinophils 0.1 10^3/ul (0-0.6); ABS Lymphocytes 0.8 10^3/ul (1.0-4.8); ABS Monocytes 0.5 10^3/ul (0-0.8); ABS Neutrophils 9.3 10^3/ul (1.5-7.7); Eosinophil % 1.1 %; Hematocrit 38 % (35-47); Hemoglobin 12.5 g/dL (12.0-16.0); Lymphocyte % 7.2 %; Mean Corpuscular HGB Conc 33 g/dL (31-36); Mean Corpuscular Hemoglobin 26 pg (27-31); Mean Corpuscular Volume 80 fL (80-97); Mean Platelet Volume 9.4 fL (7.4-10.4); Platelet Count 256 10^3/uL (150-450); Red Blood Count 4.82 10^6 /uL (3.70-4.87); Red Cell Distribution Width 15 % (10.5-15); White Blood Count 10.8 10^3/uL (3.5-10.8)
[2018-07-04 14:53] LABS: Albumin 4.4 g/dL (3.2-5.2); Albumin/Globulin Ratio 1.3 (1-3); BUN/Creatinine Ratio 12.5 (8-20); C Reactive Protein 5.85 mg/L (<8.01); Calcium 9.3 mg/dL (8.6-10.3); EGFR African American 94.7 (>60); EGFR Non-African American 78.3 (>60); Globulin 3.4 g/dL (2-4); Potassium 3.6 mmol/L (3.5-5.0); Total Bilirubin 0.4 mg/dL (0.2-1.0); Total Protein 7.8 g/dL (6.4-8.9)
[2018-07-04] MEDS ORDERED: NS 0.9% 1000 ML** 1,000 ML IV ONE (16:45)
[2018-07-04] MEDS ORDERED: guaiFENesin/CODIEN 100MG-10MG* 5 ML UDC PO ONE (16:45)
[2018-07-04 19:57] VITALS: BP 115/72
== END 2018-07-04 20:00 | disposition home or self-care (01) ==
LOC: ED 13:54
DX: J45.901 Unspecified asthma with (acute) exacerbation (principal); R07.9 Chest pain, unspecified; E07.9 Disorder of thyroid, unspecified; D64.9 Anemia, unspecified; F32.9 Major depressive disorder, single episode, unspecified; F17.210 Nicotine dependence, cigarettes, uncomplicated; R94.31 Abnormal electrocardiogram [ECG] [EKG]; Z88.3 Allergy status to other anti-infective agents; Z91.041 Radiographic dye allergy status; Z79.51 Long term (current) use of inhaled steroids; Z79.899 Other long term (current) drug therapy
CPT/HCPCS: 36415; 71046; 80053; 83605; 84484; 85025; 86140; 87040; 93005; 96361; 96374; 96375; 99284; A9270-GY; J1885; J2930